=== PATIENT | female | born 1990 | race Caucasian/White ===

== ENCOUNTER 2016-06-25 17:54 | Emergency (ER) | payer MEDICAID ==
[2016-06-25 18:26] VITALS: BP 118/74
[2016-06-25] MEDS ORDERED: Take Home: Oseltamivir 75 MG Cap, 2 Cap Pack PO ONE (18:41)
--- NOTE | 2016-06-25 18:43 | EDM.PDOC ---
ED HPI GENERAL MEDICAL PROBLEM - General Chief Complaint: General Time Seen by Provider: 06/25/16 18:04 - History of Present Illness INITIAL COMMENTS - FREE TEXT/NARRATIVE: DICTATED BY DR. 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: Musculoskeletal History: Reports: Neck pain, chronic, Other (see below) Other Musculoskeletal History: CHRONIC PAIN Neurological History: Reports: None Psychiatric History: Reports: Anxiety, Depression Endocrine/Metabolic History: Reports: None Hematologic History: Reports: Anemia Immunologic History: Reports: None Dermatologic History: Reports: None - Past Surgical History HEENT Surgical History: Reports: Adenoidectomy, Myringotomy w tube(s) Cardiovascular Surgical History: Reports: None Female Surgical History: Reports: None Endocrine Surgical History: Reports: None Musculoskeletal Surgical History: Reports: None Oncologic Surgical History: Reports: None Dermatological Surgical History: Reports: Plastic surgical reconstruction/repair , Other (see below) Social & Family History - Tobacco Use Smoking Status *Q: Current Every Day Smoker Years of Tobacco use: 15 Packs/Tins Daily: 0.3 Used Tobacco, but Quit: No Second Hand Smoke Exposure: No - Alcohol Use Days Per Week of Alcohol Use: 0 - Recreational Drug Use Recreational Drug Use: No Drug Use in Last 12 Months: No - Living Situation & Occupation Living situation: Reports: with family ED ROS GENERAL - Review of Systems Review Of Systems: See Below (DICTATED BY DR. SAMSON ANDRADE) ED EXAM, GENERAL - Physical Exam Exam: See Below (DICTATED BY DR. SAMSON ANDRADE) Course - Vital Signs Last Recorded V/S: Last Vital Signs Temp 37.1 C 06/25/16 17:55 Pulse 107 H 06/25/16 17:55 Resp 20 06/25/16 17:55 BP 118/74 06/25/16 17:55 Pulse Ox 96 06/25/16 17:55 - Orders/Labs/Meds Orders: Active Orders 24 hr Category Date Time Status CXR [Chest 2V] [CR] Stat Exams 06/25/16 18:19 Taken Labs: Laboratory Tests 06/25/16 06/25/16 Range/Units 18:15 18:15 WBC 10.6 H (4.0-10.0) x10^3/uL RBC 3.99 L (4.00-5.50) x10^6/uL Hgb 13.0 (12.0-16.0) g/dL Hct 39.4 (33.0-47.0) % MCV 98.7 H (78.0-93.0) fL MCH 32.6 H (26.0-32.0) pg MCHC 33.0 (32.0-36.0) g/dL RDW Coeff of Hussein 13.0 (10.0-15.0) % Plt Count 578 H (130-400) x10^3/uL Neut % (Auto) 68.8 (50.0-80.0) % Lymph % (Auto) 21.8 L (25.0-50.0) % [place] % (Auto) 6.1 (2.0-11.0) % Eos % (Auto) 2.5 (0.0-4.0) % Baso % (Auto) 0.8 (0.2-1.2) % C-Reactive Protein 0.5 (<=0.9) mg/dL Departure - Departure Time of Disposition: 18:40 Disposition: Home, Self-Care 01 Condition: good Clinical Impression: Influenza A Prescriptions: Oseltamivir Phosphate 75 mg PO DAILY #3 capsule Instructions: Influenza, Adult Referrals: Kristine Gu DO [Primary Care Provider] - Forms: ED Department Discharge Additional Instructions: 1. Stay well hydrated and rest 2. Alternate Tylenol/Advil as needed for discomfort/fevers 3. Cover your cough 4. Wash hands frequently 5. See your Primary care provider as symptoms warrant - Problem List Review Problem List Initiated/Reviewed/Updated: Yes
--- NOTE | 2016-06-25 22:52 | ER ---
Date of Service: 06/25/2016 REASON FOR VISIT: Cough. HISTORY: A 26-year-old white female who presents ambulatory to the emergency room with a two-day history of cough and cold symptoms. She has also had diarrhea without emesis or abdominal pain. Has a headache and a migraine with this. She has had fever and chills. At work today, she bent over to do some stuff in the lower shelf when she passed out, but this was about half hour prior to arrival. She has also been coughing up blood this afternoon and one episode of pink material. She has had some stabbing chest pain in the left posterior chest wall area. She has had some shortness of breath without wheezing, some sore throat in the mornings, head congestion, some pain in her knees and back. She has been taking some Tylenol and Sudafed for her symptoms. Tobacco use is positive. MEDICATIONS: Lexapro at bedtime. ALLERGIES: Seroquel. OBJECTIVE: General: She is alert. She is afebrile. Vital signs: Pulse 107, blood pressure 118/74, respirations are 20, O2 sats 96% on room air. HEENT: TMs negative. Throat clear. Neck: Supple. No adenopathy. Heart: Regular rate and rhythm. No murmur. Lungs: Clear to auscultation. No wheezing heard. Extremities: No edema. Warm and dry. LABORATORY DATA: At this time is pending. ASSESSMENT: Bronchitis, rule out pneumonia. PLAN: The patient was signed out to Rudi Pitts at 1830 hours this evening. Please see his note for details and disposition. FM: 06/25/2016 18:36:04 MODL: 06/25/2016 22:44:16 /[id number]
== END 2016-06-25 18:50 | disposition home or self-care (01) ==
LOC: VM.ED 17:54
DX: J40 Bronchitis, not specified as acute or chronic (principal); F17.210 Nicotine dependence, cigarettes, uncomplicated
CPT/HCPCS: 36415; 71020; 85025; 86140; 87804; 99283; A9270

== ENCOUNTER 2021-01-22 14:28 | Emergency (ER) | payer MEDICAID ==
--- NOTE | 2021-01-22 16:47 | CR ---
[id number] RAD/RAD Elbow Left 2V EXAM: RAD Elbow Left 2V CLINICAL DATA: POSSIBLE RADIOPAQUE FOREIGN BODY COMPARISON: No previous similar exam is available. FINDINGS: No fracture or dislocation is seen. There is no radiopaque foreign body in the soft tissues. There is no air in the soft tissues. There is no cortical thickening or periosteal reaction either. IMPRESSION: NEGATIVE PLAIN FILM EXAM. Jamey Martinez MD 01/22/21 [id number] Thank you for allowing us to participate in the care of your patient.
[2021-01-22] MEDS ORDERED: Lidocaine 2% with EPINEPHrine 1:100,000 20 ML MDV INJECT ONE (16:56)
--- NOTE | 2021-01-22 17:33 | EDM.PDOC ---
ED HPI GENERAL MEDICAL PROBLEM - General Chief Complaint: General Stated Complaint: NEEDLE STUCK IN LEFT ARM Time Seen by Provider: 01/22/21 15:48 Source of Information: Reports: Patient History Limitations: Reports: No Limitations - History of Present Illness INITIAL COMMENTS - FREE TEXT/NARRATIVE: Patient presents with complaints of feeling a needl is stuck in her left AC. 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 Area is tender and subcutaneous tissue/lump is palpable as well as painful. No other symptoms including redness, fever. 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: Musculoskeletal History: Reports: Neck Pain, Chronic, Other (See Below) Other Musculoskeletal History: CHRONIC PAIN Neurological History: Reports: None Psychiatric History: Reports: Anxiety, Depression Endocrine/Metabolic History: Reports: None Hematologic History: Reports: Anemia Immunologic History: Reports: None Dermatologic History: Reports: None - Past Surgical History HEENT Surgical History: Reports: Adenoidectomy, Myringotomy w Tube(s) Cardiovascular Surgical History: Reports: None Female Surgical History: Reports: None Oncologic Surgical History: Reports: None Dermatological Surgical History: Reports: Plastic Surgical Reconstruction/Repair, Other (See Below) Social & Family History - Living Situation & Occupation Living situation: Reports: with Family ED ROS GENERAL - Review of Systems Review Of Systems: See Below Constitutional: Reports: No Symptoms HEENT: Reports: No Symptoms Respiratory: Reports: No Symptoms Cardiovascular: Reports: No Symptoms Endocrine: Reports: No Symptoms GI/Abdominal: Reports: No Symptoms : Reports: No Symptoms Musculoskeletal: Reports: No Symptoms Skin: Reports: Lumps Neurological: Reports: No Symptoms Psychiatric: Reports: No Symptoms Hematologic/Lymphatic: Reports: No Symptoms Immunologic: Reports: No Symptoms ED EXAM, GENERAL - Physical Exam Exam: See Below Exam Limited By: No Limitations General Appearance: Alert, WD/WN, No Apparent Distress Ears: Normal External Exam, Normal Canal, Hearing Grossly Normal, Normal TMs Ear Exam: Bilateral Ear: Auricle Normal, Canal Normal, TM normal Nose: Normal Inspection, Normal Mucosa, No Blood Throat/Mouth: Normal Inspection, Normal Lips, Normal Teeth, Normal Gums, Normal Oropharynx, Normal Voice, No Airway Compromise Head: Atraumatic, Normocephalic Neck: Normal Inspection, Supple, Non-Tender, Full Range of Motion Respiratory/Chest: No Respiratory Distress, Lungs Clear, Normal Breath Sounds, No Accessory Muscle Use, Chest Non-Tender Cardiovascular: Normal Peripheral Pulses, Regular Rate, Rhythm, No Edema, No Gallop, No JVD, No Murmur, No Rub GI/Abdominal: Normal Bowel Sounds, Soft, Non-Tender, No Organomegaly, No Distention, No Abnormal Bruit, No Mass Back Exam: Normal Inspection, Full Range of Motion, NT Extremities: Normal Inspection, Normal Range of Motion, Non-Tender, Normal Capillary Refill, No Pedal Edema Neurological: Alert, Oriented, CN II-XII Intact, Normal Cognition, Normal Gait, Normal Reflexes, No Motor/Sensory Deficits Psychiatric: Normal Affect, Normal Mood Skin Exam: Warm, Dry, Intact, Normal Color, No Rash, Other (area of hardness located centrally in the AC of the left arm) Lymphatic: No Adenopathy ED GENERAL MEDICAL PROCEDURES - Laceration/Wound Repair Left Middle Antecubital Lac/wound length in cm: 1.5 Appearance: Subcutaneous Distal NVT: Neuro & Vascular Intact, No Tendon Injury Anesthetic Type: Local Local Anesthesia - Lidocaine (Xylocaine): 2% with EPI Local Anesthetic Volume: 2cc Skin Prep: Providone-Iodine (Betadine) Exploration/Debridement/Repair: Wound Explored, In a Bloodless Field, Explored to Base, No Foreign Material Found Closed with: Sutures Suture Size: 4-0 # of Sutures: 6 Suture Type: Prolene, Running Course - Vital Signs Last Recorded V/S: Last Vital Signs Temp 36.7 C 01/22/21 16:30 Pulse 98 01/22/21 16:30 Resp 12 01/22/21 16:30 BP 112/60 01/22/21 16:30 Pulse Ox 96 11/01/21 16:30 - Orders/Labs/Meds Meds: Medications Discontinued Medications Generic Name Dose Route Start Last Admin Trade Name Amando PRN Reason Stop Dose Admin Lidocaine/Epinephrine 20 ml 01/22/21 16:56 01/22/21 17:45 Lidocaine 2% With Epinephrine 1:100,000 20 Ml Mdv INJECT 01/22/21 16:57 20 ml ONETIME ONE Administration - Re-Assessments/Exams Free Text/Narrative Re-Assessment/Exam: 01/22/21 21:42 Patient x-ray negative for retained needle. I did however open the area with 11 blad scalpel to investigate as there was certainly a firm nodule under the skin. Using sterile technique the area was cleansed with betadine, a small linear 1.5 cm laceration was made and the area was investigated. No foreign body found. Scar tissue observed. Follow up with PCP as needed. Return in 7- 10 days for suture removal. Departure - Departure Time of Disposition: 17:30 Disposition: DC/Tfer to [facility] Condition: Good Clinical Impression: Scar tissue - Discharge Information *PRESCRIPTION DRUG MONITORING PROGRAM REVIEWED*: Not Applicable *COPY OF PRESCRIPTION DRUG MONITORING REPORT IN PATIENT MALORIE: Not Applicable Instructions: Laceration Care, Adult Referrals: Alecia Garrett PA-C [Primary Care Provider] - Forms: ED Department Discharge Additional Instructions: Follow up with Alecia Garrett as needed Return to the clinic in 7-10 days for suture removal Sepsis Event Note (ED) - Focused Exam Vital Signs: Vital Signs Temp Pulse Resp BP Pulse Ox 01/22/21 16:30 36.7 C 98 12 112/60 96 - Problem List & Annotations (1) Scar tissue SNOMED Code(s): 386751322 Code(s): L90.5 - SCAR CONDITIONS AND FIBROSIS OF SKIN Status: Acute Priority: Low - Problem List Review Problem List Initiated/Reviewed/Updated: Yes - Assessment/Plan Assessment:: 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 No needle seen on x-ray or manual investigation.
[2021-01-22 17:36] VITALS: BP 112/60; PULSE 98
== END 2021-01-22 17:30 ==
LOC: VM.ED 14:28
DX: S41.112A Laceration without foreign body of left upper arm, initial encounter (principal); Z88.8 Allergy status to other drugs, medicaments and biological substances; W26.8XXA Contact with other sharp object(s), not elsewhere classified, initial encounter
CPT/HCPCS: 12001; 73070-LT; 99284-25

== ENCOUNTER 2021-01-27 19:24 | Emergency (ER) | payer MEDICAID ==
[2021-01-27] MEDS ORDERED: Take Home: Sulfamethoxazole/Trimethoprim 800-160 MG Tab, 2 Tab Pack PO ONE (19:42)
[2021-01-27 19:45] VITALS: BP 125/58; PULSE 84
[2021-01-27] MEDS ORDERED: Take Home: Ketorolac 10 MG Tab, 4 Tab Pack PO ONE (20:02)
--- NOTE | 2021-01-30 00:37 | EDM.PDOC ---
ED HPI GENERAL MEDICAL PROBLEM - General Chief Complaint: Upper Extremity Injury/Pain Stated Complaint: POPPED STITCHES IN ARM Time Seen by Provider: 01/27/21 19:35 Source of Information: Reports: Patient History Limitations: Reports: No Limitations - History of Present Illness INITIAL COMMENTS - FREE TEXT/NARRATIVE: Pt. states that sutures came out of a laceration that was made in the skin to explore what was initially thought to be a retained needle from IV drug use. No needle was found, but that area as opened. It appears that it was possibly a small area of scar tissue. 2 sutures were placed in the incision. She states that the sutures came out several hours ago when she was "steam cleaning". She states that the margins of the incision just developed redness earlier in the day. Denies any fever or chills. 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: Musculoskeletal History: Reports: Neck Pain, Chronic, Other (See Below) Other Musculoskeletal History: CHRONIC PAIN Neurological History: Reports: None Psychiatric History: Reports: Anxiety, Depression Endocrine/Metabolic History: Reports: None Hematologic History: Reports: Anemia Immunologic History: Reports: None Dermatologic History: Reports: None - Past Surgical History HEENT Surgical History: Reports: Adenoidectomy, Myringotomy w Tube(s) Cardiovascular Surgical History: Reports: None Female Surgical History: Reports: None Endocrine Surgical History: Reports: None Musculoskeletal Surgical History: Reports: None Oncologic Surgical History: Reports: None Dermatological Surgical History: Reports: Plastic Surgical Reconstruction/Repair, Other (See Below) Social & Family History - Family History Family Medical History: Unobtainable - Tobacco Use Tobacco Use Status *Q: Current Every Day Tobacco User Years of Tobacco use: 15 Packs/Tins Daily: 0.5 - Caffeine Use Caffeine Use: Reports: None - Recreational Drug Use Recreational Drug Use: No - Living Situation & Occupation Living situation: Reports: with Family ED ROS GENERAL - Review of Systems Review Of Systems: Comprehensive ROS is negative, except as noted in HPI. ED EXAM, GENERAL - Physical Exam Exam: See Below Exam Limited By: No Limitations General Appearance: Alert, WD/WN, No Apparent Distress Extremities: Other (1 cm incision noted to L AC elbow crease. Surrounding tissue is erythematous and mildly edematous, consistent with early cellulitis.) Course - Vital Signs Last Recorded V/S: Last Vital Signs Temp 36.7 C 01/27/21 19:30 Pulse 84 01/27/21 19:30 Resp 18 01/27/21 19:30 BP 125/58 L 01/27/21 19:30 Pulse Ox 95 01/27/21 19:30 - Orders/Labs/Meds Meds: Medications Discontinued Medications Generic Name Dose Route Start Last Admin Trade Name Amando PRN Reason Stop Dose Admin Ketorolac Tromethamine 1 packet 01/27/21 20:02 01/27/21 20:11 Take Home: Ketorolac 10 Mg Tab, 4 Tab Pack PO 01/27/21 20:03 1 packet ONETIME ONE Administration Trimethoprim/Sulfamethoxazole 2 packet 01/27/21 19:42 01/27/21 20:10 Take Home: Sulfamethoxazole/Trimethoprim 800-160 Mg Tab, 2 Tab Pack PO 01/27/21 19:43 2 packet ONETIME ONE Administration Departure - Departure Time of Disposition: 20:15 Disposition: Home, Self-Care 01 Clinical Impression: Cellulitis - Discharge Information Instructions: Cellulitis, Adult, Sulfamethoxazole; Trimethoprim, SMX-TMP tablets, Probiotics Referrals: Alceia Garrett PA-C [Primary Care Provider] - Forms: ED Department Discharge Additional Instructions: Bactrim DS 1 twice daily for 10 days Return to ER if it is not gradually getting better over the next several days. It may get a more red, but return if you notice any streaking up the arm, fever, chills, or weakness. Sepsis Event Note (ED) - Evaluation Sepsis Screening Result: No Definite Risk - Problem List Review Problem List Initiated/Reviewed/Updated: Yes - Assessment/Plan Plan: Discussed findings with patient. She is upset that the incision will not be sutured again. She was informed that there is early active infection in the incision and closure is contraindicated. Pt. was started on oral bactrim DS 1 twice daily for 10 days. Return to ER if worsening redness, fever, chills, or discharge from area.
== END 2021-01-27 20:00 | disposition home or self-care (01) ==
LOC: VM.ED 19:24
DX: L03.114 Cellulitis of left upper limb (principal); Z72.0 Tobacco use; Z88.8 Allergy status to other drugs, medicaments and biological substances
CPT/HCPCS: 99283; A9270-GY